=== PATIENT | male | born 1950 | race American Indian/Alaskan Native ===

== ENCOUNTER 2017-09-16 07:54 | Outpatient (CLI) | payer MEDICARE, OTHER ==
--- NOTE | 2017-09-16 08:32 | XRay Report ---
Standing views of the right knee: Pain. Periarticular spurs are present involving the medial compartment with significant narrowing of the joint space. There is suspicion of a focal infraction of the articular surface of the medial condyle. A small linear calcification is identified in the lateral meniscus. The knee is well aligned. The bones are well-mineralized. There is no swelling and no effusion. Impression: Significant medial compartment degenerative changes.
== END 2017-09-16 07:55 | disposition home or self-care (01) ==
LOC: SPVIMAG 07:54
PROVIDERS: ATTEND Orthopaedic Surgery Sports Medicine
DX: M17.11 Unilateral primary osteoarthritis, right knee (principal); M25.861 Other specified joint disorders, right knee